=== PATIENT | female | born 1950 | race Caucasian/White ===

== ENCOUNTER 2017-04-05 08:01 | Observation (INO) | payer OTHER ==
--- NOTE | 2017-04-05 07:11 | PDANEPAE ---
ANE History of Present Illness 66 yo female for PM placement. ANE Past Medical History - Pulmonary History Hx Sleep Apnea: Yes Pulmonary History Comment: diagnosed with mild to moderate ASHLEY in 2011 - Neurologic History Neurologic History Comment: Multiple concussions in the past. Cervical fusion. ANE Review of Systems Review of Systems: ANE Patient History - Allergies Allergies/Adverse Reactions: amoxicillin [Amoxicillin] Allergy (Verified 12/07/11 09:48) aspirin Allergy (Verified 05/02/11 16:54) codeine [Codeine] Allergy (Verified 05/02/11 16:54) latex [Latex] Allergy (Verified 05/02/11 16:54) Penicillins Allergy (Verified 05/02/11 16:54) Sulfa (Sulfonamide Antibiotics) Allergy (Verified 05/02/11 16:54) - Home Medications Home Medications: Acetaminophen [Tylenol ES 500 mg (*)] 1,000 mg PO BID PRN 04/01/17 [Last Taken Unknown] Acyclovir [Zovirax 400 mg (*)] 400 mg PO BID PRN 04/01/17 [Last Taken Unknown] Cyanocobalamin (Vitamin B-12) [Vitamin B-12] 2,500 mcg SL DAILY 04/01/17 [Last Taken Unknown] Magnesium Citrate 250 Mg 1 tab PO DAILY 04/01/17 [Last Taken Unknown] Multivitamins [Multivitamin (*)] 1 each PO DAILY 04/01/17 [Last Taken Unknown] ANE Labs/Vital Signs - Vital Signs Height: 161.5 cm Weight: 77.6 kg
[2017-04-05] MEDS ORDERED: BACITRACIN IRRIGATION/NS 50,000 UNITS/1,000 ML BTL IRR ONE (08:09)
[2017-04-05] MEDS ORDERED: DIAZEPAM 5 MG TAB PO ONE (08:09)
[2017-04-05] MEDS ORDERED: NS 1,000 ML IV ONE (08:09)
[2017-04-05] MEDS ORDERED: diphenhydrAMINE 25 MG CAP PO ONE (08:09)
--- NOTE | 2017-04-05 08:21 | PDHPUP ---
History & Physical Update H&P update statement: This history and physical update is based on an assessment of the patient which was completed after admission or registration (within 24 hours), but prior to the surgery/procedure. H&P update: H&P reviewed & patient examined, no change in patient's condition since H&P completed
--- NOTE | 2017-04-05 08:22 | PDPROPOC ---
Sedation Plan of Care Sedation Plan of Care: vital signs stable, mental status noted, patient educated of risks, benefits, alternatives, patient can tolerate sedation ASA Classification: ASA 3 Planned drugs: fentanyl, midazolam Mallampati Score: Class 3 Mallampati Reference Image: Patient passed 3-3-2 rule?: Yes
[2017-04-05] MEDS ORDERED: FAMOTIDINE 20 MG/NACL 50 ML IV ONE (08:27)
[2017-04-05] MEDS ORDERED: methylPREDNISolone SOD SUCC 125 MG/2 ML VIAL IVP ONE (08:27)
[2017-04-05] MEDS ORDERED: DESMOPRESSIN ACETATE 23 MCG in NS 50 ML IV ONE (08:30)
[2017-04-05] MEDS ORDERED: VANCOMYCIN 1.25 GM in D5W 250 ML IV ONE (08:30)
--- NOTE | 2017-04-05 08:36 | PDANEPAE ---
ANE History of Present Illness 66 yo female for PM placement for diagnosis of SSS. ANE Past Medical History - Cardiovascular History Hx Arrhythmias: Yes Cardiovascular History Comment: sick sinus syndrome leading to bradycardia - Pulmonary History Hx Sleep Apnea: Yes Pulmonary History Comment: diagnosed with mild to moderate ASHLEY in 2010 - pt does not use CPAP or do any treatment for ASHLEY - Neurologic History Neurologic History Comment: Multiple concussions in the past. Cervical fusion. ANE Review of Systems Review of Systems: - Exercise capacity Exercise capacity: <4 METS - Systems Constitutional: Reports: other (fatigue) Cardiac: Reports: no symptoms ANE Patient History - Allergies Allergies/Adverse Reactions: amoxicillin [Amoxicillin] Allergy (Verified 12/07/11 09:48) aspirin Allergy (Verified 05/02/11 16:54) codeine [Codeine] Allergy (Verified 05/02/11 16:54) latex [Latex] Allergy (Verified 05/02/11 16:54) Penicillins Allergy (Verified 05/02/11 16:54) Sulfa (Sulfonamide Antibiotics) Allergy (Verified 05/02/11 16:54) - Home Medications Home medications: home medication list seen and reviewed Home Medications: Acetaminophen [Tylenol ES 500 mg (*)] 1,000 mg PO BID PRN 04/01/17 [Last Taken Unknown] Acyclovir [Zovirax 400 mg (*)] 400 mg PO BID PRN 04/01/17 [Last Taken Unknown] Cyanocobalamin (Vitamin B-12) [Vitamin B-12] 2,500 mcg SL DAILY 04/01/17 [Last Taken Unknown] Magnesium Citrate 250 Mg 1 tab PO DAILY 04/01/17 [Last Taken Unknown] Multivitamins [Multivitamin (*)] 1 each PO DAILY 04/01/17 [Last Taken Unknown] - Anes Hx Anes Hx: post operative nausea - Smoking Hx Smoking Status: Former smoker - Family Anes Hx Family Anes Hx: neg - N/A ANE Labs/Vital Signs - Vital Signs Vital Signs: reviewed preoperatively; see RN documention for details Height: 161.5 cm Weight: 77.6 kg ANE Physical Exam - Airway Neck exam: decreased ROM, spinal fusion Mallampati Score: Class 2 Mouth exam: normal dental/mouth exam (short TMD) - Pulmonary Pulmonary: clear to auscultation - Cardiovascular Cardiovascular: bradycardia - ASA Status ASA Status: III ANE Anesthesia Plan Anesthesia Plan: GA w LMA
--- NOTE | 2017-04-05 08:39 | CPEKG ---
Heart Rate: 43 RR Interval: 1395 QRSD Interval: 90 QT Interval: 616 QTC Interval: 522 QRS [place]: -18 T Wave [place]: 151 EKG Severity - ABNORMAL ECG - EKG Impression: ATRIAL FIBRILLATION EKG Impression: BORDERLINE LEFT AXIS DEVIATION EKG Impression: BORDERLINE R WAVE PROGRESSION, ANTERIOR LEADS EKG Impression: ABNORMAL T, CONSIDER ISCHEMIA, LATERAL LEADS Electronically Signed By: Israel Negron 05-Apr-2017 12:47:15
[2017-04-05 08:52] LABS: % IMMATURE GRANULYOCYTES 0.9 % (0.0-1.1); ABSOLUTE IMMATURE GRANULOCYTES 0.04 10^3/uL (0.00-0.10); ADD DIFF? NO; ADD MORPH? NO; ADD SCAN? NO; ATYPICAL LYMPHOCYTE FLAG 40 (0-99); FRAGMENT RBC FLAG 0 (0-99); HEMATOCRIT 39.3 % (38.0-47.0); HEMOGLOBIN 12.9 g/dL (12.6-16.3); LEFT SHIFT FLG 0 (0-99); LIPEMIA HEMOLYSIS FLAG 80 (0-99); MEAN CELL HEMOGLOBIN 31.6 pg (27.9-34.1); MEAN CELL HEMOGLOBIN CONCENTR. 32.8 g/dL (32.4-36.7); MEAN CELL VOLUME 96.3 fL (81.5-99.8); MEAN PLATELET VOLUME 9.2 fL (8.7-11.7); PLATELET CLUMPS FLAG 0 (0-99); PLATELET COUNT 186 10^3/uL (150-400); RED BLOOD CELL COUNT 4.08 10^6/uL (4.18-5.33); RED CELL DISTRIBUTION WIDTH 12.6 % (11.5-15.2)
[2017-04-05 08:58] LABS: INR 1.03 (0.83-1.16); PROTIME(PATIENT) 13.4 SEC (12.0-15.0)
[2017-04-05 09:13] LABS: ANION GAP 10 mEq/L (8-16); CALCIUM 9.5 mg/dL (8.5-10.4); CARBON DIOXIDE 25 mEq/l (22-31); CHLORIDE 111 mEq/L (97-110); GLOMERULAR FILTRATION RATE 55; GLUCOSE 87 mg/dL (70-100); POTASSIUM 4.2 mEq/L (3.5-5.2); SODIUM 146 mEq/L (134-144)
[2017-04-05] MEDS ORDERED: BUPIVACAINE 0.5% 30 ML SDV ONE (10:14)
[2017-04-05] MEDS ORDERED: LIDOCAINE 1% 300 MG/30 ML SDV ONE (10:14)
[2017-04-05] MEDS ORDERED: fentaNYL 100 MCG/2 ML INJ ONE (10:49)
[2017-04-05] MEDS ORDERED: PROPOFOL/EMULSION 500 MG/50 ML BOTTLE IV ONE (10:50)
[2017-04-05] MEDS ORDERED: DEXAMETHASONE 4 MG/ML VIAL ONE (10:50)
[2017-04-05] MEDS ORDERED: ONDANSETRON 4 MG/2 ML VIAL ONE (10:50)
[2017-04-05] MEDS ORDERED: LIDOCAINE 2% 5 ML SDV ONE (10:50)
[2017-04-05] MEDS ORDERED: epHEDrine SULFATE 10 MG/ML SYR ONE ×3 (11:11→11:26)
[2017-04-05] MEDS ORDERED: ACETAMINOPHEN 500 MG TAB PO PRN ×2 (12:02→12:12)
[2017-04-05] MEDS ORDERED: ACYCLOVIR 400 MG TAB PO PRN (12:02)
[2017-04-05] MEDS ORDERED: LR 500 ML IV PRN (12:12)
[2017-04-05] MEDS ORDERED: ALBUTEROL 3 ML DEYVIAL IH PRN (12:12)
[2017-04-05] MEDS ORDERED: NALOXONE HCL 0.4 MG/ML INJ IVP PRN (12:12)
[2017-04-05] MEDS ORDERED: PROMETHAZINE HCL 25 MG/ML INJ IVP PRN (12:12)
--- NOTE | 2017-04-05 12:14 | POSTANESTH ---
Post Anesthetic Evaluation Cardiovascular Status: Normal, Stable Respiratory Status: Normal, Stable Level of Consciousness/Mental Status: Can Participate in Eval, Mildly Sleepy, Arousable Pain Control: Adequate, Prn Tx Ordered Nausea/Vomiting Control: Adequate, Prn Tx Ordered Complications Possibly Related to Anesthesia: None Noted
--- NOTE | 2017-04-05 12:18 | CPEKG ---
Heart Rate: 73 RR Interval: 822 P-R Interval: 284 QRSD Interval: 102 QT Interval: 440 QTC Interval: 485 P [place]: 44 QRS [place]: -30 T Wave [place]: 150 EKG Severity - ABNORMAL ECG - EKG Impression: ATRIAL-PACED COMPLEXES EKG Impression: FIRST DEGREE AV BLOCK EKG Impression: LEFT AXIS DEVIATION EKG Impression: BORDERLINE R WAVE PROGRESSION, ANTERIOR LEADS EKG Impression: NONSPECIFIC T ABNORMALITIES, ANT-LAT LEADS EKG Impression: BORDERLINE PROLONGED QT INTERVAL Electronically Signed By: Israel Negron 05-Apr-2017 12:47:02
--- NOTE | 2017-04-05 12:53 | EPPROC ---
Electrophysiology Procedure Note: PROCEDURE PERFORMED: Implantation of an A/V Pacemaker Fluoroscopy INDICATION: This is a 66 yr old with symptomatic SSS with multiple pauses, significant bradycardia with which she was symptomatic. hence it was decided to implant a dual chamber pacemaker. PROCEDURE NOTE: Patient presented to the cardiac catherization laboratory in a fasting, post absorptive state. Cardiac warehouse general laborer nurse administered moderate sedation. The left infraclavicular area was prepped and draped in the usual sterile fashion. Lidocaine plus bupivacaine was used for local anesthesia. Left subclavian venography was performed by injection of iodinated contrast into the left antecubital vein. This was done to assure patency of the vein and also to assess for any anatomical aberrations. Using a combination of blunt and sharp dissection and electrocautery, the dissection was carried down to the prepectoral fascia. All bleeding was controlled with electrocautery. Fluoroscopy was utilized during the entire procedure for venous access and placement of the leads. Using the usual technique, left cephalic vein was accessed and a glidewire was placed. Through this initially a 9F and later a 7F sheath was passed. Placement of the guidewires into the venous system was confirmed by low- pressure blood return and also by visualizing the guidewires advancing into the inferior vena cava. A purse string suture was applied around the guidewires. An active fixation ventricular lead was advanced into the right ventricular apex and screwed in place. An active fixation atrial lead was advanced into the right atrial appendage and screwed in place. The peel away sheaths were removed. Pacing thresholds, sensing parameters and lead impedances were measured. There was no diaphragmatic stimulation at maximum output. The leads were sutured to the prepectoral fascia with 3 nonabsorbable sutures each. The pocket was created and it was flushed using antibiotic solution. It was inspected for any bleeding. The leads were attached to the pacemaker securely. The pacemaker was inserted into the pocket and secured in place with a nonabsorbable suture. Fluoroscopy was performed in SHERIDAN and URUGUAYAN planes to verify right-sided placement of the leads. Also fluoroscopy of the pacemaker pocket was performed. The pacemaker pocket was closed in 3 layers with absorbable vicryl sutures. Steristrips were placed. Appropriate dressing was applied. The patient left the cardiac catheterization laboratory in stable condition. Serial Numbers: Device: BiotroniYoostay Edora 8 SN [id number] Atrial Lead: Biotronik SOlia S45 [id number] Ventricular Lead: Biotronik SOlia S53 SN [id number] Stimulation Thresholds & Impedance Measurements: Atrial Lead 1.8mV, 1@0.4ms, 448Ohms Ventricular Lead 4.8mV, 0.3@0.4ms, 507Ohms [place] Pacing Parameters Pacing mode: DDD Lower rate: 60 Upper tracking rate: 120 Upper sensor rate: 120
[2017-04-06 05:15] LABS: % IMMATURE GRANULYOCYTES 0.8 % (0.0-1.1); ABSOLUTE IMMATURE GRANULOCYTES 0.07 10^3/uL (0.00-0.10); ADD DIFF? NO; ADD MORPH? NO; ADD SCAN? NO; ATYPICAL LYMPHOCYTE FLAG 0 (0-99); FRAGMENT RBC FLAG 0 (0-99); HEMATOCRIT 38.3 % (38.0-47.0); HEMOGLOBIN 12.6 g/dL (12.6-16.3); LEFT SHIFT FLG 10 (0-99); LIPEMIA HEMOLYSIS FLAG 80 (0-99); MEAN CELL HEMOGLOBIN 32.1 pg (27.9-34.1); MEAN CELL HEMOGLOBIN CONCENTR. 32.9 g/dL (32.4-36.7); MEAN CELL VOLUME 97.7 fL (81.5-99.8); MEAN PLATELET VOLUME 9.7 fL (8.7-11.7); PLATELET CLUMPS FLAG 10 (0-99); PLATELET COUNT 203 10^3/uL (150-400); RED BLOOD CELL COUNT 3.92 10^6/uL (4.18-5.33); RED CELL DISTRIBUTION WIDTH 12.6 % (11.5-15.2)
[2017-04-06 05:39] LABS: ANION GAP 12 mEq/L (8-16); CALCIUM 9.5 mg/dL (8.5-10.4); CARBON DIOXIDE 23 mEq/l (22-31); CHLORIDE 108 mEq/L (97-110); CREATININE 0.9 mg/dL (0.6-1.0); GLOMERULAR FILTRATION RATE > 60; GLUCOSE 140 mg/dL (70-100); POTASSIUM 5.3 mEq/L (3.5-5.2); SODIUM 143 mEq/L (134-144)
[2017-04-06 08:13] VITALS: RESP 16
[2017-04-06] MEDS ORDERED: MAGNESIUM CITRATE 250 MG PO SCH (09:00)
[2017-04-06] MEDS ORDERED: MULTIVITAMINS 1 EACH TAB PO SCH (09:00)
[2017-04-06] MEDS ORDERED: Cyanocobalamin (Vitamin B-12) [Vitamin B-12] 2,500 MCG SL SCH (09:00)
--- NOTE | 2017-04-06 09:00 | CPEKG ---
Heart Rate: 72 RR Interval: 833 P-R Interval: 312 QRSD Interval: 96 QT Interval: 440 QTC Interval: 482 QRS [place]: -15 T Wave [place]: 102 EKG Severity - ABNORMAL ECG - EKG Impression: ATRIAL-PACED RHYTHM EKG Impression: BORDERLINE LEFT AXIS DEVIATION EKG Impression: NONSPECIFIC T ABNORMALITIES, LATERAL LEADS Electronically Signed By: Israel Negron 06-Apr-2017 10:35:41
--- NOTE | 2017-04-06 12:18 | ASMTCASEMG ---
Living Arrangements What is your living Answers: With Spouse arrangement? Who do you live with? Type Of Residence What kind of residence do Answers: House you live in? Discharge Plan Comments Coordination Status Comments Notes: Pt is a 66 y/o female comes in for a evaluation of SSS. Pt has a hx of von willebrand disease and FH of complex congential heart disease. Pt will most likely discharge independent when she is medically stable w/ supportive . CM available for changes. Date Signed: 04/06/2017 12:17 PM Electronically Signed By:GHANSHYAM Smith
[2017-04-06 12:19] VITALS: BP 142/70; PULSE 62; TEMP 98.4; O2SAT 96
--- NOTE | 2017-04-06 17:19 | ASDISCHSUM ---
Discharge Information Plan Status:Home with Home Health Medically Cleared to Leave:04/06/2017 Discharge Date:04/06/2017 01:21 PM CM D/C Disposition: ADT D/C Disposition:Home, Routine, Self-Care Projected Discharge Date:04/06/2017 12:00 AM Transportation at D/C: Discharge Delay Reason: Follow-Up Date:04/06/2017 12:00 AM Discharge Slot: Final Diagnosis: Placement Information Patient Contact Information Contact Name:EVAN Relationship: Address:[address] City:[place] [facility] Phone: [facility] Code:[place] [address] Email: Financial Information Financial Class:HMO and PPO Plans Primary Plan Desc:[employer] Primary Plan Number:[id number] Secondary Plan Desc: Secondary Plan Number: Assessment Information [facility] Initial CM Assessment Living Arrangements What is your living Answers: With Spouse arrangement? Who do you live with? Type Of Residence What kind of residence do Answers: House you live in? Discharge Plan Comments Coordination Status Comments Notes: Pt is a 66 y/o female comes in for a evaluation of SSS. Pt has a hx of von willebrand disease and FH of complex congential heart disease. Pt will most likely discharge independent when she is medically stable w/ supportive . CM available for changes. Date Signed: 04/06/2017 12:17 PM Electronically Signed By:GHANSHYAM Smith Intervention Information Intervention Type:*CORNEJO-Signed Date of Service:04/06/2017 09:14 AM Patient Type:Observation Staff Member:Tiffany Knight Hours: Discipline: Severity: Comment:
== END 2017-04-06 13:21 | disposition home or self-care (01) ==
LOC: FCATH 08:01 → F2W 12:01
PROVIDERS: ADMIT Internal Medicine Cardiovascular Disease; ATTEND Internal Medicine Cardiovascular Disease
PROC: 0JH606Z Insertion of Pacemaker, Dual Chamber into Chest Subcutaneous Tissue and Fascia, Open Approach (ICD-10-PCS; principal; 2017-04-05)
PROC: 02H63JZ Insertion of Pacemaker Lead into Right Atrium, Percutaneous Approach (ICD-10-PCS; principal; 2017-04-05)
PROC: B5171ZZ Fluoroscopy of Left Subclavian Vein using Low Osmolar Contrast (ICD-10-PCS; principal; 2017-04-05)
PROC: 02HK3JZ Insertion of Pacemaker Lead into Right Ventricle, Percutaneous Approach (ICD-10-PCS; principal; 2017-04-05)
DX: I49.5 Sick sinus syndrome (principal); D68.0 Von Willebrand disease; Z86.19 Personal history of other infectious and parasitic diseases; Z82.49 Family history of ischemic heart disease and other diseases of the circulatory system
CPT/HCPCS: 33208; 71020; 93005; C1769; G0378; C1785; C1898; J1100; J1200; J2405; J2597; J2704; J3010; J3370